=== PATIENT | female | born 1980 | race Caucasian/White ===

== ENCOUNTER → 2020-02-06 | Outpatient (CLI) | payer BC ==
--- NOTE | 2020-02-06 14:45 | Diagnostic Imaging Report ---
Examination: MRI BRAIN WO History: Headache. Cerebrovascular accident. Comparison studies: None Technique: Sagittal T2; axial DWI, FLAIR, GRE or SWI, T1, Coronal FLAIR. Intravenous contrast: None Findings: Scalp: No abnormal signal. No masses. Bone marrow: Normal in signal intensity. Brain volume: Adequate for age. No volume loss. Ventricles: Normal in size and configuration. No hydrocephalus. Extra-axial spaces: No abnormalities. Parenchyma: There are patchy and punctate areas of T2/FLAIR hyperintensity in the periventricular and subcortical white matter, nonspecific. No masses, hemorrhage, or acute vascular insults. Suprasellar and sellar region: No abnormalities. Craniocervical junction: No abnormalities. The foramen magnum is patent. No Chiari malformations. Vessels: Normal flow-voids in the arteries and sinuses. Additional findings:None. IMPRESSION: No acute intracranial abnormalities. Findings as described in the periventricular and subcortical white matter could be related to chronic microvascular ischemic change or migraines. Signed by: Dr. Felecia Mann M.D. on 02/06/2020 2:41 PM
== END ==
LOC: MRI 13:19
PROVIDERS: ATTEND Radiology Neuroradiology
DX: I63.9 Cerebral infarction, unspecified (principal)
CPT/HCPCS: 70551